=== PATIENT | female | born 1955 | race Caucasian/White ===

== ENCOUNTER 2024-04-14 12:23 | Inpatient (IN) | payer MEDICARE ==
--- NOTE | 2024-04-14 12:52 | ED ---
Abdominal Pain HPI - General Chief Complaint: Urogenital Stated Complaint: L side lower abd pain Time Seen by Provider: 04/14/24 12:30 Source: patient, EMS, RN notes reviewed Mode of arrival: EMS Limitations: no limitations - History of Present Illness Initial Comments: This is a 69-year-old female who presents to the emergency department for abdominal pain. Patient presented to the emergency department at [facility] earlier today for pain in the left lower quadrant that began the night prior. Pain had gotten substantially worse a couple of hours prior to arrival. She expressed that it felt similar to diverticulitis that she had about 10 years ago . She states that yesterday she started taking Macrobid for a UTI and has had 1 dose so far. She was found to have a kidney stone at their facility. Denies any history of kidney stones. She required multiple doses of pain medication to control symptoms, and was transferred here for intractable pain related to ureteral calculus and urology consult. MD Complaint: abdominal pain - Related Data Home Medications Medication Instructions Recorded Confirmed Atorvastatin [Lipitor] 5 mg PO HS 04/14/24 04/14/24 Celecoxib [CeleBREX] 200 mg PO BID 04/14/24 04/14/24 Desvenlafaxine [Pristiq ER] 100 mg PO QAM 04/14/24 04/14/24 [place] Carbonate [Lithobid] 300 mg PO BID 04/14/24 04/14/24 Nitrofurantoin Monohyd/M-Cryst 100 mg PO Q12HR 04/14/24 04/14/24 [Macrobid] buPROPion HCL [Wellbutrin XL] 450 mg PO DAILY 04/14/24 04/14/24 clonazePAM 2 mg PO HS 04/14/24 04/14/24 clonazePAM [KlonoPIN] 0.5 mg PO QAM 04/14/24 04/14/24 lisinopriL [Zestril] 20 mg PO DAILY 04/14/24 04/14/24 Allergies Allergy/AdvReac Type Severity Reaction Status Date / Time No Known Allergies Allergy Verified 04/14/24 14:18 Review of Systems ROS Statement: Those systems with pertinent positive or pertinent negative responses have been documented in the HPI. ROS Other: All systems not noted in ROS Statement are negative. Past Medical History Additional Past Medical History / Comment(s): MS, obstructive sleep apnea History of Any Multi-Drug Resistant Organisms: None Reported Past Surgical History: Cholecystectomy, Hysterectomy Additional Past Surgical History / Comment(s): cervical fusion 2014, arthritis, Past Psychological History: Anxiety, Depression Smoking Status: Never smoker Past Alcohol Use History: None Reported Past Drug Use History: None Reported General Exam Limitations: no limitations General appearance: alert, in distress Head exam: Present: atraumatic, normocephalic, normal inspection Respiratory exam: Present: normal lung sounds bilaterally. Absent: respiratory distress, wheezes, rales, rhonchi, stridor Cardiovascular Exam: Present: regular rate, normal rhythm, normal heart sounds. Absent: systolic murmur, diastolic murmur, rubs, gallop, clicks GI/Abdominal exam: Present: soft, tenderness (LLQ). Absent: distended Back exam: Present: CVA tenderness (L). Absent: CVA tenderness (R) Neurological exam: Present: alert, oriented X3, CN II-XII intact Psychiatric exam: Present: normal affect, normal mood Skin exam: Present: warm, dry, intact, normal color. Absent: rash Course Vital Signs 04/14/24 04/14/24 12:27 17:05 Temperature 98.6 F 98.5 F Pulse Rate 62 67 Respiratory 20 18 Rate Blood Pressure 169/79 138/83 O2 Sat by Pulse 97 98 Oximetry Medical Decision Making - Medical Decision Making This is a 69 year old female who presents to the emergency department as a transfer for a kidney stone. Was pt. sent in by a medical professional or institution? @ -[facility] Did you speak to anyone other than the patient for history? @ -No Did you review nursing and triage notes? @ -Yes, and I agree, it is accurate with regards to the patient's symptoms. Were old charts reviewed? @ -Documentation from [facility]: CT scan of the abdomen/pelvis: Mild left hydronephrosis and diffuse hydroureter with a 5 x 3 mm distal left ureteral calculus WBC: 13.27 Neutrophils: 9.79 Cr: 1.35 eGFR: 41 Differential Diagnosis? @ -Differential Flank Pain: UTI, pyelonephritis, kidney stone, musculoskeletal, pancreatitis, cholecystitis, this is not meant to be an all-inclusive list. EKG interpreted by me (3pts min.)? @ -Not obtained X-rays interpreted by me (1pt min.)? @ -Not obtained CT interpreted by me (1pt min.)? @ -Not obtained U/S interpreted by me (1pt. min.)? @ -Not obtained What testing was considered but not performed? (CT, X-rays, U/S, labs)? Why? @ -None What meds were considered but not given? Why? @ -None Did you discuss the management of the patient with other professionals? @ -Yes, Dr. Kellogg, urology, who advised that the patient can be admitted to medicine and he will come and see her as a consult. Dr. De La Cruz accepts the patient for admission to medicine. Did you reconcile home meds? @ -No Was smoking cessation discussed for >3mins.? @ -No Was critical care preformed (if so, how long)? @ -No Were there social determinants of health that impacted care today? How? (Home lessness, low income, unemployed, alcoholism, drug addiction, transportation, low edu. Level, literacy, decrease access to med. care, retirement, rehab)? @ -No Was there de-escalation of care discussed even if they declined? (Discuss DNR or withdrawal of care, Hospice)? @ -No What co-morbidities impacted this encounter? (DM, HTN, Smoking, COPD, CAD, Ca ncer, CVA, Hep., AIDS, mental health diagnosis, sleep apnea, morbid obesity)? @ -HTN, HLD Was patient admitted / discharged? @ -Admitted. Documentation from [facility] was reviewed. She was found to have mild left hydronephrosis and hydroureter with a 5 x 3 mm distal left ureteral calculus. Urinalysis was not overtly suggestive of infection at their facility. She only had a very small amount of bacteria. WBC was 13.27. She had been given a dose of Zosyn prior to leaving their facility. On arrival here she continued to be in severe pain. She was given pain medication as well as a dose of Flomax. Repeat lab work demonstrates an increase in white blood cell count which is now 16.6. Urinalysis more so suggestive of possible infection here than it was at their facility. Urine was sent for culture. She was given 1 g of Rocephin. Case discussed with urology who will consult on the patient. Patient admitted to medicine for intractable pain related to ureteral calculus. Case discussed with ED attending Dr. Woods. Undiagnosed new problem with uncertain prognosis? @ -None Drug Therapy requiring intensive monitoring for toxicity (Heparin, Nitro, Insulin, Cardizem)? @ -None Were any procedures done? @ -None Diagnosis/symptom? @ -Left ureteral calculus, UTI, intractable pain Acute, or Chronic, or Acute on Chronic? @ -Acute Uncomplicated (without systemic symptoms) or Complicated (systemic symptoms)? @ -Uncomplicated Side effects of treatment? @ -None Exacerbation, Progression, or Severe Exacerbation] @ -Not applicable Poses a threat to life or bodily function? @ -Yes, the pain is limiting her ability to function. - Lab Data Result diagrams: 04/14/24 13:45 04/14/24 13:45 Lab Results 04/14/24 04/14/24 04/14/24 Range/Units 13:45 13:45 13:45 WBC 16.6 H (3.8-10.6) k/uL RBC 5.09 (3.80-5.40) m/uL Hgb 15.0 (11.4-16.0) gm/dL Hct 46.8 H (34.0-46.0) % MCV 92.0 (80.0-100.0) fL MCH 29.5 (25.0-35.0) pg MCHC 32.1 (31.0-37.0) g/dL RDW 13.1 (11.5-15.5) % Plt Count 249 (150-450) k/uL MPV 6.8 Neutrophils % 88 % Lymphocytes % 4 % Monocytes % 7 % Eosinophils % 0 % Basophils % 0 % Neutrophils # 14.6 H (1.3-7.7) k/uL Lymphocytes # 0.6 L (1.0-4.8) k/uL Monocytes # 1.1 H (0-1.0) k/uL Eosinophils # 0.1 (0-0.7) k/uL Basophils # 0.0 (0-0.2) k/uL Hypochromasia Slight Sodium 135 L (137-145) mmol/L Potassium 4.7 (3.5-5.1) mmol/L Chloride 109 H (98-107) mmol/L Carbon Dioxide 21 L (22-30) mmol/L Anion Gap 5 mmol/L BUN 20 H (7-17) mg/dL Creatinine 1.40 H (0.52-1.04) mg/dL Est GFR (CKD-EPI)AfAm 45 (>60 ml/min/1.73 sqM) Est GFR (CKD-EPI)NonAf 39 (>60 ml/min/1.73 sqM) Glucose 124 H (74-99) mg/dL Plasma Lactic Acid Grant (0.7-2.0) mmol/L Calcium 9.2 (8.4-10.2) mg/dL Total Bilirubin 0.5 (0.2-1.3) mg/dL AST 25 (14-36) U/L ALT 21 (4-34) U/L Alkaline Phosphatase 82 (38-126) U/L Total Protein 6.7 (6.3-8.2) g/dL Albumin 4.0 (3.5-5.0) g/dL Urine Color Light Yellow Urine Appearance Cloudy H (Clear) Urine pH 5.0 (5.0-8.0) Ur Specific [place] 1.021 (1.001-1.035) Urine Protein Negative (Negative) Urine Glucose (UA) Negative (Negative) Urine Ketones Negative (Negative) Urine Blood Large H (Negative) Urine Nitrite Negative (Negative) Urine Bilirubin Negative (Negative) Urine Urobilinogen <2.0 (<2.0) mg/dL Ur Leukocyte Esterase Moderate H (Negative) Urine RBC 63 H (0-5) /hpf Urine WBC 15 H (0-5) /hpf Ur Squamous Epith Cells 7 H (0-4) /hpf Urine Bacteria Occasional H (None) /hpf Urine Mucus Rare H (None) /hpf 04/14/24 Range/Units 13:45 WBC (3.8-10.6) k/uL RBC (3.80-5.40) m/uL Hgb (11.4-16.0) gm/dL Hct (34.0-46.0) % MCV (80.0-100.0) fL MCH (25.0-35.0) pg MCHC (31.0-37.0) g/dL RDW (11.5-15.5) % Plt Count (150-450) k/uL MPV Neutrophils % % Lymphocytes % % Monocytes % % Eosinophils % % Basophils % % Neutrophils # (1.3-7.7) k/uL Lymphocytes # (1.0-4.8) k/uL Monocytes # (0-1.0) k/uL Eosinophils # (0-0.7) k/uL Basophils # (0-0.2) k/uL Hypochromasia Sodium (137-145) mmol/L Potassium (3.5-5.1) mmol/L Chloride (98-107) mmol/L Carbon Dioxide (22-30) mmol/L Anion Gap mmol/L BUN (7-17) mg/dL Creatinine (0.52-1.04) mg/dL Est GFR (CKD-EPI)AfAm (>60 ml/min/1.73 sqM) Est GFR (CKD-EPI)NonAf (>60 ml/min/1.73 sqM) Glucose (74-99) mg/dL Plasma Lactic Acid Grant 1.6 (0.7-2.0) mmol/L Calcium (8.4-10.2) mg/dL Total Bilirubin (0.2-1.3) mg/dL AST (14-36) U/L ALT (4-34) U/L Alkaline Phosphatase (38-126) U/L Total Protein (6.3-8.2) g/dL Albumin (3.5-5.0) g/dL Urine Color Urine Appearance (Clear) Urine pH (5.0-8.0) Ur Specific [place] (1.001-1.035) Urine Protein (Negative) Urine Glucose (UA) (Negative) Urine Ketones (Negative) Urine Blood (Negative) Urine Nitrite (Negative) Urine Bilirubin (Negative) Urine Urobilinogen (<2.0) mg/dL Ur Leukocyte Esterase (Negative) Urine RBC (0-5) /hpf Urine WBC (0-5) /hpf Ur Squamous Epith Cells (0-4) /hpf Urine Bacteria (None) /hpf Urine Mucus (None) /hpf Disposition Clinical Impression: Left ureteral calculus, Intractable pain Disposition: ADMITTED IP TO THIS HOSP
[2024-04-14] MEDS ORDERED: HYDROmorphone 1 MG/ML 1 ML SYRINGE IVP PRN (13:50)
[2024-04-14] MEDS ORDERED: HYDROmorphone 0.5 MG/0.5 ML SYRINGE IVP PRN (13:50)
[2024-04-14] MEDS ORDERED: KETOROLAC 15 MG/ML 1 ML VIAL IVP PRN (13:50)
[2024-04-14] MEDS ORDERED: NALOXONE 0.4 MG/ML 1 ML VIAL IV PRN (13:50)
[2024-04-14] MEDS: SODIUM CHLORIDE 0.9% 1,000 ML IV STA (13:55)
[2024-04-14] MEDS: HYDROmorphone 0.5 MG/0.5 ML SYRINGE IVP STA (13:56)
[2024-04-14] MEDS: KETOROLAC 15 MG/ML 1 ML VIAL IVP STA (13:56)
[2024-04-14] MEDS: ONDANSETRON 4 MG/2 ML VIAL IVP STA (13:57)
[2024-04-14 14:19] LABS: Basophils % (A) 0 %; Eosinophils # (A) 0.1 k/uL (0-0.7); Eosinophils % (A) 0 %; HCT 46.8 % (34.0-46.0); Hypochromasia Slight; Lymphocytes # (A) 0.6 k/uL (1.0-4.8); Lymphocytes % (A) 4 %; MCH 29.5 pg (25.0-35.0); MCHC 32.1 g/dL (31.0-37.0); Mean Platelet Volume 6.8; Monocytes # (A) 1.1 k/uL (0-1.0); Monocytes % (A) 7 %; Neutrophils # (A) 14.6 k/uL (1.3-7.7); Neutrophils % (A) 88 %; Platelet Count 249 k/uL (150-450); RBC 5.09 m/uL (3.80-5.40); RDW 13.1 % (11.5-15.5); WBC 16.6 k/uL (3.8-10.6)
[2024-04-14 14:57] LABS: ALT 21 U/L (4-34); AST 25 U/L (14-36); African American GFR (CKD) 45 (>60 ml/min/1.73 sqM); Alkaline Phosphatase 82 U/L (38-126); Anion Gap 5 mmol/L; Blood Urea Nitrogen 20 mg/dL (7-17); Calcium 9.2 mg/dL (8.4-10.2); Carbon Dioxide 21 mmol/L (22-30); Chloride 109 mmol/L (98-107); Glucose 124 mg/dL (74-99); Non-African American GFR(CKD) 39 (>60 ml/min/1.73 sqM); Potassium 4.7 mmol/L (3.5-5.1); Sodium 135 mmol/L (137-145); Total Bilirubin 0.5 mg/dL (0.2-1.3); Total Protein 6.7 g/dL (6.3-8.2)
[2024-04-14] MEDS ORDERED: hydrALAZINE HCL 20 MG/ML 1 ML VIAL IVP PRN (15:43)
[2024-04-14] MEDS: HYDROcodone/APAP 5-325MG 1 EACH TAB PO PRN (15:56)
[2024-04-14] MEDS: TAMSULOSIN 0.4 MG CAP.ER.24H PO STA (15:56)
[2024-04-14] MEDS: SODIUM CHLORIDE 0.9% 1,000 ML IV SCH (15:57)
[2024-04-14 16:05] LABS: Appearance,Urine Cloudy (Clear); Bacteria,Urine Occasional /hpf; Bilirubin,Urine Negative (Negative); Blood,Urine Large (Negative); Color,Urine Light Yellow; Glucose,Urine (UA) Negative (Negative); Ketones,Urine Negative (Negative); Leukocyte Esterase,Urine Moderate (Negative); Mucus,Urine Rare /hpf; Nitrite,Urine Negative (Negative); Protein,Urine Negative (Negative); RBC,Urine 63 /hpf (0-5); Specific Gravity,Urine 1.021 (1.001-1.035); Squamous Epithelial Cell,Urine 7 /hpf (0-4); Urobilinogen,Urine <2.0 mg/dL (<2.0); WBC,Urine 15 /hpf (0-5)
[2024-04-14] MEDS: ONDANSETRON 4 MG/2 ML VIAL IVP PRN (19:44)
--- NOTE | 2024-04-14 22:07 | P.GSCN ---
History of Present Illness Consult date: 04/14/24 Reason for Consult: Left ureteral calculus Requesting physician: Bernardino De La Cruz History of present illness: The patient is a 69-year-old white female with no prior history of urolithiasis. Yesterday evening, she experienced acute onset of left lower quadrant abdominal pain. She was evaluated at [facility]. CT scan revealed mild left hydroureteronephrosis due to a 5 x 3 mm left distal ureteral calculus. Review of Systems - Constitutional Reports chills - Gastrointestinal Reports nausea, Reports vomiting - Genitourinary Genitourinary: Reports dysuria, Reports flank pain, Reports hematuria, Reports kidney stones Past Medical History Additional Past Medical History / Comment(s): MS, obstructive sleep apnea History of Any Multi-Drug Resistant Organisms: None Reported Past Surgical History: Cholecystectomy, Hysterectomy Additional Past Surgical History / Comment(s): cervical fusion 2013, arthritis, Past Psychological History: Anxiety, Depression Smoking Status: Never smoker Past Alcohol Use History: None Reported Past Drug Use History: None Reported Medications and Allergies Home Medications Medication Instructions Recorded Confirmed Type Atorvastatin [Lipitor] 5 mg PO HS 04/14/24 04/14/24 History Celecoxib [CeleBREX] 200 mg PO BID 04/14/24 04/14/24 History Desvenlafaxine [Pristiq ER] 100 mg PO QAM 04/14/24 04/14/24 History [place] Carbonate [Lithobid] 300 mg PO BID 04/14/24 04/14/24 History Nitrofurantoin Monohyd/M-Cryst 100 mg PO Q12HR 04/14/24 04/14/24 History [Macrobid] buPROPion HCL [Wellbutrin XL] 450 mg PO DAILY 04/14/24 04/14/24 History clonazePAM 2 mg PO HS 04/14/24 04/14/24 History clonazePAM [KlonoPIN] 0.5 mg PO QAM 04/14/24 04/14/24 History lisinopriL [Zestril] 20 mg PO DAILY 04/14/24 04/14/24 History Allergies Allergy/AdvReac Type Severity Reaction Status Date / Time No Known Allergies Allergy Verified 04/14/24 14:18 Surgical - Exam Vital Signs Temp Pulse Resp BP Pulse Ox 98.6 F 62 20 169/79 97 04/14/24 12:27 04/14/24 12:27 04/14/24 12:27 04/14/24 12:27 04/14/24 12:27 - General well developed, well nourished, moderate distress - Neck no masses, trachea midline - Respiratory normal respiratory effort - Abdomen Soft, non-distended. No palpable mass. Mild left lower quadrant tenderness, no guarding or rebound. - Psychiatric oriented to time, oriented to person, oriented to place, speech is normal, memory intact Results - Labs 04/14/24 13:45 04/14/24 13:45 Abnormal Lab Results - Last 24 Hours (Table) 04/14/24 04/14/24 04/14/24 Range/Units 13:45 13:45 13:45 WBC 16.6 H (3.8-10.6) k/uL Hct 46.8 H (34.0-46.0) % Neutrophils # 14.6 H (1.3-7.7) k/uL Lymphocytes # 0.6 L (1.0-4.8) k/uL Monocytes # 1.1 H (0-1.0) k/uL Sodium 135 L (137-145) mmol/L Chloride 109 H (98-107) mmol/L Carbon Dioxide 21 L (22-30) mmol/L BUN 20 H (7-17) mg/dL Creatinine 1.40 H (0.52-1.04) mg/dL Glucose 124 H (74-99) mg/dL Urine Appearance Cloudy H (Clear) Urine Blood Large H (Negative) Ur Leukocyte Esterase Moderate H (Negative) Urine RBC 63 H (0-5) /hpf Urine WBC 15 H (0-5) /hpf Ur Squamous Epith Cells 7 H (0-4) /hpf Urine Bacteria Occasional H (None) /hpf Urine Mucus Rare H (None) /hpf Diabetes panel 04/14/24 Range/Units 13:45 Sodium 135 L (137-145) mmol/L Potassium 4.7 (3.5-5.1) mmol/L Chloride 109 H (98-107) mmol/L Carbon Dioxide 21 L (22-30) mmol/L BUN 20 H (7-17) mg/dL Creatinine 1.40 H (0.52-1.04) mg/dL Glucose 124 H (74-99) mg/dL Calcium 9.2 (8.4-10.2) mg/dL AST 25 (14-36) U/L ALT 21 (4-34) U/L Alkaline Phosphatase 82 (38-126) U/L Total Protein 6.7 (6.3-8.2) g/dL Albumin 4.0 (3.5-5.0) g/dL Calcium panel 04/14/24 Range/Units 13:45 Calcium 9.2 (8.4-10.2) mg/dL Albumin 4.0 (3.5-5.0) g/dL Pituitary panel 04/14/24 Range/Units 13:45 Sodium 135 L (137-145) mmol/L Potassium 4.7 (3.5-5.1) mmol/L Chloride 109 H (98-107) mmol/L Carbon Dioxide 21 L (22-30) mmol/L BUN 20 H (7-17) mg/dL Creatinine 1.40 H (0.52-1.04) mg/dL Glucose 124 H (74-99) mg/dL Calcium 9.2 (8.4-10.2) mg/dL Adrenal panel 04/14/24 Range/Units 13:45 Sodium 135 L (137-145) mmol/L Potassium 4.7 (3.5-5.1) mmol/L Chloride 109 H (98-107) mmol/L Carbon Dioxide 21 L (22-30) mmol/L BUN 20 H (7-17) mg/dL Creatinine 1.40 H (0.52-1.04) mg/dL Glucose 124 H (74-99) mg/dL Calcium 9.2 (8.4-10.2) mg/dL Total Bilirubin 0.5 (0.2-1.3) mg/dL AST 25 (14-36) U/L ALT 21 (4-34) U/L Alkaline Phosphatase 82 (38-126) U/L Total Protein 6.7 (6.3-8.2) g/dL Albumin 4.0 (3.5-5.0) g/dL - Imaging CT scan - abdomen: report reviewed Assessment and Plan (1) Left ureteral calculus Current Visit: Yes Status: Acute Code(s): N20.1 - CALCULUS OF URETER SNOMED Code(s): 46412600 Plan: I had a lengthy discussion with the patient and her regarding her left distal ureteral calculus. I explained to them that the calculus has an 80 to 90% chance of passage. We discussed medical expulsion therapy. She states that her pain was very severe and she is thus very reluctant to be discharged home and experienced another similar attack. In view of this, she desires ureteroscopic removal of the calculus. This was discussed in detail. Potential risks were reviewed, which include anesthesia, bleeding, infection, inability to remove the calculus, and ureteral injury. The possible need for a ureteral stent was discussed. I am hopeful that this can be performed tomorrow. Time with Patient: Greater than 30
[2024-04-14] MEDS: clonazePAM 1 MG TAB PO SCH (22:16)
[2024-04-14] MEDS: ATORVASTATIN 10 MG TAB PO SCH (22:17)
[2024-04-14] MEDS: LITHIUM CARBONATE 300 MG CAP PO SCH (22:17)
[2024-04-14] MEDS: HEPARIN SODIUM,PORCINE 5,000 UNIT/ML 1 ML VIAL SQ SCH (22:20)
[2024-04-14] MEDS: ACETAMINOPHEN TAB 325 MG TAB PO PRN (22:25)
--- NOTE | 2024-04-15 00:17 | HP ---
HISTORY AND PHYSICAL CHIEF COMPLAINT: Left loin to groin pain. HISTORY OF PRESENT ILLNESS: This is a 69-year-old woman with a past medical history of multiple medical problems including history of anxiety, depression, being followed by Dr. Gil in the outpatient setting, is complaining of left lower quadrant abdominal pain rather loin to groin pain. The patient was evaluated at [facility]. CT scan showed distal ureter stone. The patient was also given a course of Zosyn and was sent to [facility] for further evaluation and treatment. There is no history of any fever, rigors, or chills at this time. PAST MEDICAL HISTORY: Multiple sclerosis, cholecystectomy, anxiety, depression. Rest of the history and rest of the chart is also reviewed. HOME MEDICATIONS: Celebrex. Dose and rest of medications noted. ALLERGIES: None. FAMILY HISTORY: No history of heart disease or strokes in the family. SOCIAL HISTORY: No history of smoking or alcohol. REVIEW OF SYSTEMS: Fourteen-point review is negative except as mentioned earlier. PHYSICAL EXAMINATION: VITAL SIGNS: Pulse 62, blood pressure 169/70, respirations 20. HEENT: Conjunctivae normal. NECK: No JVD. CARDIOVASCULAR: S1, S2. RESPIRATIONS: Breath sounds diminished at the bases. ABDOMEN: Soft, obese, mild diffuse tenderness in the right lower quadrant. No guarding. No rigidity. LEGS: No edema. NERVOUS SYSTEM: Nonfocal. SKIN: No ulcer, rash, bleeding. JOINTS: No active deforming arthropathy. LABORATORY DATA: WBC 16.6, creatinine is 1.40. ASSESSMENT: 1. Left lower quadrant abdominal pain with possibly ureterolithiasis. 2. Rule out urinary tract infection. 3. Increased WBC. 4. Chronic kidney disease, stage III. 5. Multiple sclerosis. 6. Anxiety, depression. 7. Multiple complex medical issues. RECOMMENDATIONS AND DISCUSSION: This is a 69-year-old woman presented with multiple complex medical issues, we will monitor the patient closely. Recommend to continue current medications, continue symptomatic treatment. We will check a UA. If the UA is abnormal, I would obtain cultures with empiric antibiotic therapy. Otherwise, I would recommend urology evaluation. Creatinine is slightly elevated. Prognosis guarded because of multiple complex medical issues and further recommendations to follow. See orders for further details. Also, recommend p.r.n. hydralazine also. MMODL / IJN: [id number] /
[2024-04-15 08:57] LABS: Basophils # (A) 0.07 X 10*3/uL (0.00-0.10); Basophils % (A) 0.5 %; Eosinophils # (A) 0.28 X 10*3/uL (0.04-0.35); Eosinophils % (A) 2.1 %; HCT 41.3 % (37.2-46.3); HGB 12.7 g/dL (12.0-15.0); Lymphocytes # (A) 1.54 X 10*3/uL (0.90-5.00); Lymphocytes % (A) 11.5 %; MCH 28.3 pg (27.0-32.0); MCHC 30.8 g/dL (32.0-37.0); MCV 92.2 FL (80.0-97.0); Mean Platelet Volume 9.7 FL (9.5-12.2); Monocytes # (A) 1.42 X 10*3/uL (0.20-1.00); Monocytes % (A) 10.6 %; NRBC Per 100 WBC 0 X 10*3/uL (0.00-0.01); Neutrophils # (A) 10.06 X 10*3/uL (1.80-7.70); Platelet Count 233 X 10*3/uL (140-440); RBC 4.48 X 10*6/uL (4.10-5.20); RDW 13.6 % (11.5-14.5); WBC 13.41 X 10*3/uL (4.50-10.00)
[2024-04-15 09:16] LABS: ALT 16 U/L (8-44); AST 15 U/L (13-35); Albumin 3.5 g/dL (3.8-4.9); Albumin/Globulin Ratio 1.67 Ratio (1.60-3.17); Alkaline Phosphatase 69 U/L (41-126); BUN/Creat Ratio 11.59 Ratio (12.00-20.00); Blood Urea Nitrogen 19.7 mg/dL (9.0-27.0); Calcium 8.6 mg/dL (8.7-10.3); Carbon Dioxide 20.9 mmol/L (21.6-31.8); Chloride 106 mmol/L (96-109); Globulin 2.1 g/dL (1.6-3.3); Glucose 116 mg/dL (70-110); Potassium 4.2 mmol/L (3.5-5.5); Sodium 137 mmol/L (135-145); Total Bilirubin 0.3 mg/dL (0.3-1.2); Total Protein 5.6 g/dL (6.2-8.2)
[2024-04-15] MEDS: lisinopriL 20 MG TAB PO SCH (10:28)
[2024-04-15] MEDS: PANTOPRAZOLE 40 MG/10 ML VIAL IV SCH (10:31)
[2024-04-15] MEDS: IV FLUID CONTINUATION 1,000 ML IV ONE (10:51)
[2024-04-15] MEDS ORDERED: LIDOCAINE 1% INJ 10MG/ML (20 ML MDV) ONE (11:13)
[2024-04-15] MEDS ORDERED: fentaNYL (PF) 50 MCG/ML 2 ML AMP ONE (11:13)
[2024-04-15] MEDS ORDERED: PHENYLEPHRINE 10 MG/ML VIAL ONE (11:13)
[2024-04-15] MEDS ORDERED: NEOSTIGMINE 1 MG/ML 10 ML VIAL ONE (11:13)
[2024-04-15] MEDS ORDERED: MIDAZOLAM 2 MG/2 ML VIAL ONE (11:13)
[2024-04-15] MEDS ORDERED: KETOROLAC 15 MG/ML 1 ML VIAL ONE (11:13)
[2024-04-15] MEDS ORDERED: GLYCOPYRROLATE 0.2 MG/ML 2 ML VIAL ONE (11:13)
[2024-04-15] MEDS ORDERED: ROCURONIUM 10 MG/ML (5 ML VIAL) IV ONE (11:13)
[2024-04-15] MEDS ORDERED: PROPOFOL 10 MG/ML 20 ML VIAL IV ONE (11:13)
[2024-04-15] MEDS ORDERED: SUCCINYLCHOLINE CHLORIDE 200 MG/10 ML VIAL IV ONE (11:13)
[2024-04-15] MEDS: DESVENLAFAXINE SUCCINATE 50 MG TAB.ER.24H PO SCH (11:40)
[2024-04-15] MEDS: IOPAMIDOL-370 100ML BTL MISCELLANE ONE (12:09)
--- NOTE | 2024-04-15 12:16 | P.OP ---
Date of Procedure: 04/15/24 Preoperative Diagnosis: Left ureteral calculus Postoperative Diagnosis: Same Procedure(s) Performed: Cystoscopy, left ureteroscopy with Holmium laser lithotripsy and stone basketing, left ureteral stent insertion Anesthesia: PREMA Surgeon: Mono Kellogg Estimated Blood Loss (ml): 5 IV fluids (ml): 700 Pathology: other (Left ureteral calculus fragments, sent for chemical analysis) Condition: stable Disposition: PACU Indications for Procedure: The patient is a 69-year-old white female with no prior history of urolithiasis. Yesterday evening, she experienced acute onset of left lower quadrant abdominal pain. She was evaluated at [facility]. CT scan revealed mild left hydroureteronephrosis due to a 5 x 3 mm left distal ureteral calculus. She was transferred to [facility] and admitted with intractable pain. She has elected to undergo ureteroscopic removal of the calculus. Operative Findings: Left distal ureteral calculus, fragmented and removed completely. Description of Procedure: The patient was taken to the operating room and placed in the dorsolithotomy position, with legs supported in Andrei stirrups. The external genitalia was prepped and draped sterilely. The 30 lens was used to introduce the 21-Montenegrin cystoscopic sheath through the urethra and into the bladder under direct vision. The bladder was examined in its entirety. Both ureteral orifices were normal anatomic location and configuration. No tumors or foreign bodies were seen. The semirigid ureteroscope was advanced into the bladder, and the left ureteral orifice was cannulated. However, the ureteroscope could not be advanced through the intramural portion of the ureter. Therefore, a 0.035 inch Glidewire was passed through the ureteroscope and up to the left renal pelvis. The ureteroscope was removed, and a 15 Montenegrin, 4 cm balloon dilating catheter was advanced over the wire, just distal to the calculus which was seen on fluoroscopy. After dilating the distal ureter, ureteroscopy was repeated and it was possible to advance the ureteroscope up to the calculus. The 272 micron Holmium laser probe was passed through the ureteroscope, and lithotripsy was performed. The calculus was very dense, likely composed of calcium oxalate monohydrate. After fragmenting the calculus, all calculus fragments were removed using a 1.9 Montene[place]in nitinol basket. Inspection of the ureter showed no evidence of ureteral perforation. The Glidewire was then passed through the ureteroscope and up to the left renal pelvis, where it coiled. The ureteroscope was removed, and the Glidewire was backloaded into the cystoscope, which was passed into the bladder. A 22 cm, 6 [place]ene[place]in double-J ureteral stent was placed over the wire. Proper stent positioning was verified fluoroscopically and endoscopically. The bladder was emptied and the cystoscope removed. Calculus fragments were retrieved and sent for chemical analysis. The patient tolerated the procedure well and was taken to the recovery room in stable condition. [facility] [place] Procedure Acuity: Urgent Stone Size and Location: 3 x 5 mm, left distal ureter Ureteral Dilation: Balloon Dilation Ureteral Access Sheath Used: No Stone Sent for Analysis: Yes All Stones/Fragments Were Removed with a Basket: Yes Complications: No Preoperative Antibiotics Given: Yes Stent Placed: Yes If Stent Placed, Was String Left Attached: No If Stent Placed, When is it to be Removed: 2 weeks Discharge Medications: Toradol, tamsulosin
--- NOTE | 2024-04-15 13:28 | FL ---
Fluoroscopy History: LEFT URETERAL CALCULUS Cysto for left kidney stone 36sec fluoro time .[id number] [facility], , 04/15/2024 1:25 PM
[2024-04-15] MEDS: buPROPion XL 150 MG TAB.ER.24H PO SCH (13:52)
[2024-04-15] MEDS: clonazePAM 0.5 MG TAB PO SCH (13:52)
[2024-04-15] MEDS ORDERED: BENZOCAINE/MENTHOL LOZENG 1 EACH LOZENGE MUCOUS MEM PRN (14:22)
[2024-04-15] MEDS ORDERED: BENZOCAINE SPRAY 1 CAN MUCOUS MEM PRN (14:22)
--- NOTE | 2024-04-15 14:35 | P.PN ---
Subjective Progress Note Date: 04/15/24 This is a pleasant 69-year-old female who was recently admitted from an outside hospital for further evaluation with concerns of kidney stone being followed by urology. Patient is scheduled to undergo cystoscopy and will await surgical report. Patient is afebrile and n.p.o. currently with no reports of chest pain or shortness of breath. White count remains elevated at 13 although trending down and will follow-up on repeat labs. Continue gentle hydration as well as antibiotics for now. Review of systems: Constitutional: No reports of fatigue, fever, or chills Cardiovascular: No reports of chest pain or palpitations Respiratory: No reports of shortness of breath or cough GI: No reports of nausea, no reports of vomiting, no diarrhea, reports sore throat : No reports of dysuria or retention Neurovascular: reports of generalized weakness All medications have been reviewed PHYSICAL EXAMINATION: GENERAL: The patient is alert and oriented x4, Well developed, well nourished. Elderly appearing, morbidly obese HEENT: Pupils are round and equally reacting to light. EOMI. no scleral icterus. No conjunctival pallor. Normocephalic, atraumatic. No pharyngeal erythema. No thyromegaly. CARDIOVASCULAR: S1 and S2 muffled PULMONARY: diminished breath sounds bilaterally with no wheezing or rhonchi noted. ABDOMEN: soft. Nontender on exam. obese. non-distended, normoactive bowel so unds. No palpable organomegaly. MUSCULOSKELETAL: No joint swelling or deformity. EXTREMITIES: No cyanosis, clubbing, or pedal edema. NEUROLOGICAL: Gross neurological examination did not reveal any focal deficits. Diffuse weakness SKIN: No rashes. Assessment: Left lower quadrant abdominal pain with ureteral lithiasis Mild left hydroureteronephrosis secondary to a ureteral calculus as noted on imaging Possible acute urinary tract infection Leukocytosis, likely secondary to above Chronic kidney disease, stage III Multiple sclerosis Hypertension history Hyperlipidemia History of anxiety/depression Morbid obesity with a BMI of 63.9 GI prophylaxis DVT prophylaxis Full code Plan: Recommend to continue with current medications and management with urology following. Patient underwent cystoscopy with left ureteroscopy with laser lithotripsy and stone basketing, left ureteral stent insertion Continue empiric antibiotics for now and will follow-up on urine culture Home medications reviewed and resumed as appropriate Patient is reporting sore throat post intubation and will provide HurriCaine spray along with Cepacol as needed Encouraged incentive spirometer use at least 10 times every hour while awake Encouraged increase activity as tolerated Will follow-up on repeat labs in the a.m. The impression and plan of care has been dictated by Adriana Fan, nurse practitioner as directed. Dr. Jeanmarie MD I have performed a history and examination and MDM of this patient, discussed the same with the dictator, and agree with the dictator's assessment and plan as written ,documented as a scribe. Based on total visit time, I have performed more than 50% of the visit. Any additional findings or plans will be noted. Objective - Vital Signs Vital signs: Vital Signs Temp 98.0 F 04/15/24 10:50 Pulse 84 04/15/24 10:50 Resp 18 04/15/24 11:37 BP 143/75 04/15/24 10:50 Pulse Ox 94 L 04/15/24 10:50 FiO2 Intake & Output 04/14/24 04/15/24 04/15/24 18:59 06:59 18:59 Intake Total 700 Output Total 200 Balance -200 700 Weight 153.314 kg Intake: IV 700 Output: Urine 200 Other: # Voids 1 2 - Labs CBC & Chem 7: 04/15/24 03:11 04/15/24 03:11 Labs: Abnormal Lab Results - Last 24 Hours (Table) 04/14/24 04/14/24 04/14/24 Range/Units 13:45 13:45 13:45 WBC 16.6 H (3.8-10.6) k/uL Hct 46.8 H (34.0-46.0) % MCHC (32.0-37.0) g/dL Neutrophils # 14.6 H (1.3-7.7) k/uL Lymphocytes # 0.6 L (1.0-4.8) k/uL Monocytes # 1.1 H (0-1.0) k/uL Sodium 135 L (137-145) mmol/L Chloride 109 H (98-107) mmol/L Carbon Dioxide 21 L (22-30) mmol/L BUN 20 H (7-17) mg/dL Creatinine 1.40 H (0.52-1.04) mg/dL Est GFR (CKD-EPI) (>=60) BUN/Creatinine Ratio (12.00-20.00) Ratio Glucose 124 H (74-99) mg/dL Calcium (8.7-10.3) mg/dL Total Protein (6.2-8.2) g/dL Albumin (3.8-4.9) g/dL Urine Appearance Cloudy H (Clear) Urine Blood Large H (Negative) Ur Leukocyte Esterase Moderate H (Negative) Urine RBC 63 H (0-5) /hpf Urine WBC 15 H (0-5) /hpf Ur Squamous Epith Cells 7 H (0-4) /hpf Urine Bacteria Occasional H (None) /hpf Urine Mucus Rare H (None) /hpf 04/15/24 04/15/24 Range/Units 03:11 03:11 WBC 13.41 H (3.8-10.6) k/uL Hct (34.0-46.0) % MCHC 30.8 L (32.0-37.0) g/dL Neutrophils # 10.06 H (1.3-7.7) k/uL Lymphocytes # (1.0-4.8) k/uL Monocytes # 1.42 H (0-1.0) k/uL Sodium (137-145) mmol/L Chloride (98-107) mmol/L Carbon Dioxide 20.9 L (22-30) mmol/L BUN (7-17) mg/dL Creatinine 1.7 H (0.52-1.04) mg/dL Est GFR (CKD-EPI) 33 L (>=60) BUN/Creatinine Ratio 11.59 L (12.00-20.00) Ratio Glucose 116 H (74-99) mg/dL Calcium 8.6 L (8.7-10.3) mg/dL Total Protein 5.6 L (6.2-8.2) g/dL Albumin 3.5 L (3.8-4.9) g/dL Urine Appearance (Clear) Urine Blood (Negative) Ur Leukocyte Esterase (Negative) Urine RBC (0-5) /hpf Urine WBC (0-5) /hpf Ur Squamous Epith Cells (0-4) /hpf Urine Bacteria (None) /hpf Urine Mucus (None) /hpf
[2024-04-16 08:49] LABS: Basophils # (A) 0.06 X 10*3/uL (0.00-0.10); Basophils % (A) 0.5 %; Eosinophils # (A) 0.43 X 10*3/uL (0.04-0.35); Eosinophils % (A) 3.7 %; HCT 42.6 % (37.2-46.3); HGB 13.3 g/dL (12.0-15.0); Lymphocytes # (A) 2.04 X 10*3/uL (0.90-5.00); Lymphocytes % (A) 17.4 %; MCH 28.4 pg (27.0-32.0); MCHC 31.2 g/dL (32.0-37.0); Mean Platelet Volume 9.5 FL (9.5-12.2); Monocytes # (A) 1.04 X 10*3/uL (0.20-1.00); Monocytes % (A) 8.9 %; NRBC Per 100 WBC 0 X 10*3/uL (0.00-0.01); Neutrophils % (A) 68.9 %; Platelet Count 244 X 10*3/uL (140-440); RBC 4.68 X 10*6/uL (4.10-5.20); RDW 13.3 % (11.5-14.5); WBC 11.74 X 10*3/uL (4.50-10.00)
[2024-04-16 09:02] LABS: ALT 17 U/L (8-44); AST 18 U/L (13-35); Albumin 3.7 g/dL (3.8-4.9); Albumin/Globulin Ratio 1.61 Ratio (1.60-3.17); Alkaline Phosphatase 71 U/L (41-126); BUN/Creat Ratio 12.21 Ratio (12.00-20.00); Blood Urea Nitrogen 17.1 mg/dL (9.0-27.0); Calcium 8.8 mg/dL (8.7-10.3); Carbon Dioxide 21.6 mmol/L (21.6-31.8); Chloride 108 mmol/L (96-109); Globulin 2.3 g/dL (1.6-3.3); Glucose 107 mg/dL (70-110); Magnesium 2.3 mg/dL (1.5-2.4); Potassium 4.2 mmol/L (3.5-5.5); Sodium 140 mmol/L (135-145); Total Bilirubin 0.3 mg/dL (0.3-1.2)
--- NOTE | 2024-04-16 09:36 | P.PN ---
Subjective Progress Note Date: 04/16/24 Principal diagnosis: Left ureteral calculus Mrs. Livingston underwent ureteroscopic removal of her left distal ureteral calculus yesterday. She feels much better today and denies pain. Objective - Vital Signs Vital signs: Vital Signs Temp 98.3 F 04/16/24 07:10 Pulse 66 04/16/24 07:10 Resp 16 04/16/24 07:10 BP 142/81 04/16/24 07:10 Pulse Ox 94 L 04/16/24 07:10 FiO2 Intake & Output 04/15/24 04/16/24 04/16/24 18:59 06:59 18:59 Intake Total 950 Balance 950 Intake: IV 700 Oral 250 Other: # Voids 3 2 - Constitutional General appearance: Present: average body habitus, cooperative, no acute dist ress - Psychiatric Psychiatric: Present: A&O x's 3 - Labs CBC & Chem 7: 04/16/24 03:37 04/16/24 03:37 Labs: Abnormal Lab Results - Last 24 Hours (Table) 04/16/24 04/16/24 Range/Units 03:37 03:37 WBC 11.74 H (4.50-10.00) X 10*3/uL MCHC 31.2 L (32.0-37.0) g/dL Immature Gran # 0.07 H (0.00-0.04) X 10*3/uL Neutrophils # 8.10 H (1.80-7.70) X 10*3/uL Monocytes # 1.04 H (0.20-1.00) X 10*3/uL Eosinophils # 0.43 H (0.04-0.35) X 10*3/uL Est GFR (CKD-EPI) 41 L (>=60) Total Protein 6.0 L (6.2-8.2) g/dL Albumin 3.7 L (3.8-4.9) g/dL Microbiology - Last 24 Hours (Table) 04/14/24 13:45 Urine Culture - Final Urine,Voided Assessment and Plan (1) Left ureteral calculus Current Visit: Yes Status: Acute Code(s): N20.1 - CALCULUS OF URETER SNOMED Code(s): 10786728 Plan: Mrs. Livingston is urologically stable for discharge. I have sent prescriptions for tamsulosin and tolterodine, both of which are known to diminish stent discomfort. She will follow-up on April 27 for office cystoscopy with stent removal. Please notify me if I can be of any further assistance during this hospitalization.
[2024-04-16 13:42] VITALS: BP 110/52; PULSE 61; RESP 17; TEMP 98.1
--- NOTE | 2024-04-19 12:37 | P.DS ---
Providers Date of admission: 04/14/24 15:00 Expected date of discharge: 04/16/24 Attending physician: Bernardino De La Cruz MD Consults: 04/14/24 13:50 Consult Physician Urgent Consulting Provider: Mono Kellogg Consult Reason/Comments: Left ureteral calculus, intractable pain Do you want consulting provider notified?: Yes Primary care physician: Jeanna Bonilla MD Hospital Course: Final diagnosis Left lower quadrant abdominal pain with ureteral lithiasis Mild left hydroureteronephrosis secondary to a ureteral calculus as noted on imaging, status post left ureteral stone extraction with stenting by urology Possible acute urinary tract infection, present on admission, cultures are negative Leukocytosis, likely secondary to above Chronic kidney disease, stage III Multiple sclerosis Hypertension history Hyperlipidemia History of anxiety/depression Morbid obesity with a BMI of 63.9 GI prophylaxis DVT prophylaxis Full code Discharge disposition Patient is being discharged in a stable condition with guarded prognosis to home. Patient will follow-up with Dr. merrill in the outpatient setting upon discharge. Patient is to continue with oral Ceftin on discharge along with me dications per urology and close outpatient follow-up with urologist on 04/27/2024. Total time taken is greater than 35 minutes. Hospital course This is a 69-year-old female who was recently admitted from a previous hospital sent here for urology evaluation with concerns of possible urinary tract infection with also a kidney stone on the left. Patient is status post left ureteroscopy with lithotripsy and stent replacement on the left due to a stone. Urine cultures are negative and will continue Ceftin for 3-day course to complete the course. Patient instructed to follow-up with urology as scheduled and has an appointment on 04/27/2024. Home medications reviewed and resumed and patient will be discharged today. Please refer to other consultation notes for further HPI. Currently no reports of chest pain, shortness of breath, or palpitations. Patient is afebrile. No reports of nausea or vomiting and patient is tolerating diet. Patient will be discharged home today. Guarded prognosis Physical exam: Gen: This is a 69-year-old female who is awake, alert and oriented x 3, well- developed, well-nourished, morbidly obese, elderly appearing HEENT: Head is atraumatic, normocephalic. Pupils equal, round. Sclerae is anicteric. NECK: Supple. No JVD. No lymphadenopathy. No thyromegaly. LUNGS: Diminished breath sounds bilaterally otherwise clear to auscultation. No wheezes or rhonchi. No intercostal retractions. HEART: S1, S2 are muffled ABDOMEN: Soft. Obese bowel sounds are present. No masses. No tenderness. EXTREMITIES: No pedal edema. No calf tenderness. NEUROLOGICAL: Patient is awake, alert and oriented x3. Cranial nerves 2 through 12 are grossly intact. Please refer to medication reconciliation sheet for a list of medications. The impression and plan of care has been dictated by Adriana Fan, Nurse Practitioner as directed. Dr. Jeanmarie MD I have performed a history and examination and MDM of this patient, discussed the same with the dictator, and agree with the dictator's assessment and plan as written ,documented as a scribe. Based on total visit time, I have performed more than 50% of the visit. Patient Condition at Discharge: Fair Plan - Discharge Summary Discharge Rx Participant: No New Discharge Prescriptions: New Tolterodine ER [Detrol LA] 4 mg PO DAILY #21 cap cefUROXime axetiL [Ceftin] 500 mg PO BID 4 Days #8 tab Tamsulosin [Flomax] 0.4 mg PO DAILY #21 cap Acetaminophen Tab [Tylenol] 650 mg PO Q6HR PRN tab PRN Reason: Mild Pain Or Fever > 100.5 Continue Celecoxib [CeleBREX] 200 mg PO BID buPROPion HCL [Wellbutrin XL] 450 mg PO DAILY Atorvastatin [Lipitor] 5 mg PO HS clonazePAM 2 mg PO HS lisinopriL [Zestril] 20 mg PO DAILY clonazePAM [KlonoPIN] 0.5 mg PO QAM Emerson Carbonate [Lithobid] 300 mg PO BID Desvenlafaxine [Pristiq ER] 100 mg PO QAM Discontinued Nitrofurantoin Monohyd/M-Cryst [Macrobid] 100 mg PO Q12HR Discharge Medication List Atorvastatin [Lipitor] 5 mg PO HS 04/14/24 [History] Celecoxib [CeleBREX] 200 mg PO BID 04/14/24 [History] Desvenlafaxine [Pristiq ER] 100 mg PO QAM 04/14/24 [History] Emerson Carbonate [Lithobid] 300 mg PO BID 04/14/24 [History] buPROPion HCL [Wellbutrin XL] 450 mg PO DAILY 04/14/24 [History] clonazePAM 2 mg PO HS 04/14/24 [History] clonazePAM [KlonoPIN] 0.5 mg PO QAM 04/14/24 [History] lisinopriL [Zestril] 20 mg PO DAILY 04/14/24 [History] Tamsulosin [Flomax] 0.4 mg PO DAILY #21 cap 04/15/24 [Rx] Tolterodine ER [Detrol LA] 4 mg PO DAILY #21 cap 04/15/24 [Rx] Acetaminophen Tab [Tylenol] 650 mg PO Q6HR PRN tab 04/16/24 [Rx] cefUROXime axetiL [Ceftin] 500 mg PO BID 4 Days #8 tab 04/16/24 [Rx] Follow up Appointment(s)/Referral(s): Mono Kellogg MD [STAFF PHYSICIAN] - 04/27/24 Tameka Merrill MD [REFERRING] - 1-2 Days Activity/Diet/Wound Care/Special Instructions: Follow-up with primary care provider on discharge Continue taking antibiotics until finished Monitor for any fever, pain with urination, burning, decreased urination contact urology and/or your primary care provider Keep your follow-up appointment with Dr. Kellogg as scheduled Diet and activity as tolerated. Follow-up with Dr. Kellogg on April 27, 2024 for office cystoscopy with stent removal. Discharge Disposition: HOME SELF-CARE
== END 2024-04-16 14:31 | disposition home or self-care (01) | DRG 660 ==
LOC: SUPCPDRO 12:23 → EC 12:23 → 6NMEDSUR 14:14 → OBSVTOIN 15:00 → 4SSUR 15:04
PROVIDERS: ADMIT Internal Medicine; ATTEND Internal Medicine
PROC: 0T778DZ Dilation of Left Ureter with Intraluminal Device, Via Natural or Artificial Opening Endoscopic (ICD-10-PCS; principal; 2024-04-15 13:40)
PROC: 0TC78ZZ Extirpation of Matter from Left Ureter, Via Natural or Artificial Opening Endoscopic (ICD-10-PCS; 2024-04-15 13:40)
DX: N20.2 Calculus of kidney with calculus of ureter (principal); N39.0 Urinary tract infection, site not specified; Z68.44 Body mass index [BMI] 60.0-69.9, adult; G35 Multiple sclerosis; N18.30 Chronic kidney disease, stage 3 unspecified; I12.9 Hypertensive chronic kidney disease with stage 1 through stage 4 chronic kidney disease, or unspecified chronic kidney disease; E66.01 Morbid (severe) obesity due to excess calories; E78.5 Hyperlipidemia, unspecified; F32.A Depression, unspecified; F41.9 Anxiety disorder, unspecified; Z79.1 Long term (current) use of non-steroidal anti-inflammatories (NSAID); Z79.899 Other long term (current) drug therapy; Z87.442 Personal history of urinary calculi; Z90.710 Acquired absence of both cervix and uterus; Z98.1 Arthrodesis status; Z90.49 Acquired absence of other specified parts of digestive tract
CPT/HCPCS: 36415; 80053; 81001; 82365; 83605; 83735; 85025; 87086; 94760; 96361; 96365; 96375; 99285

== ENCOUNTER → 2024-05-19 | Outpatient (CLI) | payer MEDICARE ==
--- NOTE | 2024-05-19 15:59 | US ---
EXAMINATION TYPE: US kidneys/renal and bladder DATE OF EXAM: 05/19/2024 COMPARISON: NONE CLINICAL INDICATION: Female, 69 years old with history of N13.2 HYDRONEPHROSIS WITH CALCULUS LEFT; Hx renal stone with lithotripsy 3 weeks ago; Patient states signs/symptoms have resolved and denies any other relevant history TECHNIQUE: Grayscale imaging of the bilateral kidneys and urinary bladder: FINDINGS: EXAM MEASUREMENTS: Right Kidney: 11.0 x 5.9 x 5.8 cm Left Kidney: 10.3 x 6.0 x 6.0 cm Post Void Residual Volume: NA mL Right Kidney: Echogenic foci seen upper and lower pole without shadowing or color twinkle Left Kidney: WNL Bladder: WNL Bilateral Jets seen: Yes Normal Post Void Residual: NA IMPRESSION: No evidence for obstructive uropathy no renal calculus. [facility], , 05/19/2024 3:57 PM
== END | disposition home or self-care (01) ==
LOC: RADUSWWP 14:21
PROVIDERS: ATTEND Urology
DX: N13.2 Hydronephrosis with renal and ureteral calculous obstruction (principal); Z87.442 Personal history of urinary calculi
CPT/HCPCS: 76770